=== PATIENT | female | born 1955 | race African-American/Black ===

== ENCOUNTER → 2016-12-05 | Outpatient (CLI) | payer BC ==
--- NOTE | 2016-12-05 09:45 | EKG ---
[facility] [address] [place] [address] Test Date: 2016-12-05 Test Time: 09:43:08 Pat Name: LARS MCKEON Department: Room: Gender: F [employer]: EVON : 1955 Requested By: JANIS TONY Order Number: [id number] Reading MD: Keenan Sterling Measurements Intervals [place] Rate: 104 P: 0 MI: 134 QRS: 75 QRSD: 76 T: 29 QT: 330 QTc: 440 Interpretive Statements SINUS TACHYCARDIA VENTRICULAR PREMATURE COMPLEX(ES) Electronically Signed On 12-05-2016 16:54:32 CDT by Keenan Sterling
== END | disposition home or self-care (01) ==
LOC: EKG 09:25
PROVIDERS: ATTEND Anesthesiology
DX: R00.0 Tachycardia, unspecified (principal); E11.9 Type 2 diabetes mellitus without complications
CPT/HCPCS: 93005

== ENCOUNTER 2019-06-03 08:34 | Outpatient (CLI) | payer BC ==
[2019-06-03] VITALS (9 sets, daily range): BP systolic 114–149; BP diastolic 59–94
[~2019-06-03] VITALS: Ht 149.9 cm; Wt 93.0 kg
[2019-06-03] MEDS ORDERED: OMEP40CA45 PO (09:00)
[2019-06-03] MEDS ORDERED: CHOL500050 PO (09:00)
[2019-06-03] MEDS ORDERED: GLIM2TAB3 PO (09:00)
[2019-06-03] MEDS ORDERED: METF500T16 PO (09:00)
[2019-06-03] MEDS ORDERED: GABA300C18 PO (09:00)
[2019-06-03] MEDS ORDERED: LOSA-73 PO (09:00)
[2019-06-03] MEDS ORDERED: HYDR12.575 PO (09:00)
[2019-06-03] MEDS ORDERED: iron PO (09:00)
[2019-06-03] MEDS ORDERED: LIDOCAINE WITH 8.4% SOD BICARB 3 ML DISP.SYRIN. ONE (09:15)
[2019-06-03 09:24] LABS: BASO % 1 % (0-3); EOS # 0.1 x10^3/uL (0.0-0.7); EOS % 2 % (0-3); HEMATOCRIT 30.5 % (36.0-47.0); HEMOGLOBIN 9.9 g/dL (12.0-15.5); LYMPH # 0.4 x10^3/uL (1.0-4.8); LYMPH % 18 % (24-48); MEAN CORPUSCULAR HEMOGLOBIN 27 pg (25-35); MEAN CORPUSCULAR HGB CONC 32 g/dL (31-37); MEAN CORPUSCULAR VOLUME 84 fL (79-100); MONO # 0.3 x10^3/uL (0.0-1.1); MONO % 12 % (0-9); NEUT # 1.6 x10^3/uL (1.8-7.7); NEUT % 67 % (31-73); PLATELET COUNT 83 x10^3/uL (140-400); RED BLOOD COUNT 3.65 x10^6/uL (3.50-5.40); RED CELL DISTRIBUTION WIDTH 20.4 % (11.5-14.5); WHITE BLOOD COUNT 2.4 x10^3/uL (4.0-11.0)
[2019-06-03 09:34] LABS: PROTHROMBIN TIME PATIENT 14.9 SEC (11.7-14.0)
[2019-06-03] MEDS ORDERED: MIDAZOLAM HCL/PF 2 MG/2 ML VIAL. ONE (09:59)
[2019-06-03] MEDS ORDERED: fentaNYL PF VIAL 100 MCG/2 ML VIAL ONE (10:00)
--- NOTE | 2019-06-03 10:10 | PDOC ---
MODERATE SEDATION ASSESSMENT RISKS/ALTERNATIVES Risks/Alternatives Risks and alternatives of this type of sedation and procedure discussed with: RISK/ALTERNATIVES: Patient H & P ON CHART H & P H & P on chart and reviewed for co-morbid conditions and appropriate labs. H&P ON CHART: Yes STATUS PREG STATUS ASSESSED: Yes MEDS/ALLERGIES REVIEWED Meds/Allergies Reviewed Medications and Allergies including time and route of recently administered narcotics and sedatives. MEDS/ALLERGIES REVIEWED: Yes ASA RATING ASA RATING: II AIRWAY ASSESSMENT Airway Assessment Airway patency, oral function limitations, presence of caps, crowns, dentures, partials, and ability to extend neck assessed. AIRWAY ASSESSMENT: Yes MALLAMPATI SCORE MALLAMPATI SCORE: II PRE-SEDATION ASSESSMENT PRE-SEDATION ASSESSMENT: Yes TATI CORNEJO MD Jun 03, 2019 10:10
--- NOTE | 2019-06-03 10:10 | PDOC2 ---
INTERV RADIOLOGY CONSULT Date of Consult 06.03.19 Reason for Consult abnormal wbc count. anemia. Referring Physician Michele Identification/Chief Complaint anemia, abn wbc count Source Patient History of Present Illness Reason for Visit as above Past Medical History Cardiovascular: No pertinent hx Pulmonary: No pertinent hx GI: No pertinent hx Heme/Onc: Anemia NOS, Other Hepatobiliary: No pertinent hx Psych: No pertinent hx Rheumatologic: No pertinent hx Infectious disease: No pertinent hx ENT: No pertinent hx Renal/: No pertinent hx Endocrine: No pertinent hx Dermatology: No pertinent hx Current Medications Current Medications Lidocaine HCl (Buffered Lidocaine 1%) 3 ml STK-MED ONCE .ROUTE ; Start 06/03/19 at 09:15; Stop 06/03/19 at 09:15; Status DC Midazolam HCl (Versed) 2 mg STK-MED ONCE .ROUTE ; Start 06/03/19 at 09:59; Stop 06/03/19 at 10:00; Status DC Fentanyl Citrate (Fentanyl 2ml Vial) 100 mcg STK-MED ONCE .ROUTE ; Start 06/03/19 at 10:00; Stop 06/03/19 at 10:00; Status DC Active Scripts Active Reported Glimepiride 2 Mg Tablet 1 Tab PO DAILY Gabapentin (Gabapentin) 300 Mg Capsule 300 Mg PO TID Vitamin D3 (Cholecalciferol (Vitamin D3)) 50,000 Unit Capsule 1 Cap PO WEEKLY 28 Days [iron ] 65 Mg PO DAILY Omeprazole 40 Mg Capsule.dr 1 Cap PO DAILY Metformin Hcl 500 Mg Tablet 500 Mg PO BIDWMEALS Hydrochlorothiazide Capsule (Hydrochlorothiazide) 12.5 Mg Capsule 12.5 Mg PO DAILY Losartan Potassium 50 Mg Tablet 50 Mg PO DAILY Allergies Coded Allergies: No Known Drug Allergies (Unverified , 06/03/19) Physical Exam Cardiovascular rrr Chest cta Vitals Vital Signs Date Time Temp Pulse Resp B/P (MAP) Pulse Ox O2 Delivery O2 Flow Rate FiO2 06/03/19 09:23 Room Air 06/03/19 09:16 98.3 79 18 143/66 (91) 98 98.3 Labs Laboratory Tests Test 06/03/19 09:20 White Blood Count 2.4 x10^3/uL (4.0-11.0) Red Blood Count 3.65 x10^6/uL (3.50-5.40) Hemoglobin 9.9 g/dL (12.0-15.5) Hematocrit 30.5 % (36.0-47.0) Mean Corpuscular Volume 84 fL (79-100) Mean Corpuscular Hemoglobin 27 pg (25-35) Mean Corpuscular Hemoglobin Concent 32 g/dL (31-37) Red Cell Distribution Width 20.4 % (11.5-14.5) Platelet Count 83 x10^3/uL (140-400) Neutrophils (%) (Auto) 67 % (31-73) Lymphocytes (%) (Auto) 18 % (24-48) Monocytes (%) (Auto) 12 % (0-9) Eosinophils (%) (Auto) 2 % (0-3) Basophils (%) (Auto) 1 % (0-3) Neutrophils # (Auto) 1.6 x10^3/uL (1.8-7.7) Lymphocytes # (Auto) 0.4 x10^3/uL (1.0-4.8) Monocytes # (Auto) 0.3 x10^3/uL (0.0-1.1) Eosinophils # (Auto) 0.1 x10^3/uL (0.0-0.7) Basophils # (Auto) 0.0 x10^3/uL (0.0-0.2) Prothrombin Time 14.9 SEC (11.7-14.0) Prothromb Time International Ratio 1.2 (0.8-1.1) Activated Partial Thromboplast Time 33 SEC (24-38) Laboratory Tests Test 06/03/19 09:20 White Blood Count 2.4 x10^3/uL (4.0-11.0) Red Blood Count 3.65 x10^6/uL (3.50-5.40) Hemoglobin 9.9 g/dL (12.0-15.5) Hematocrit 30.5 % (36.0-47.0) Mean Corpuscular Volume 84 fL (79-100) Mean Corpuscular Hemoglobin 27 pg (25-35) Mean Corpuscular Hemoglobin Concent 32 g/dL (31-37) Red Cell Distribution Width 20.4 % (11.5-14.5) Platelet Count 83 x10^3/uL (140-400) Neutrophils (%) (Auto) 67 % (31-73) Lymphocytes (%) (Auto) 18 % (24-48) Monocytes (%) (Auto) 12 % (0-9) Eosinophils (%) (Auto) 2 % (0-3) Basophils (%) (Auto) 1 % (0-3) Neutrophils # (Auto) 1.6 x10^3/uL (1.8-7.7) Lymphocytes # (Auto) 0.4 x10^3/uL (1.0-4.8) Monocytes # (Auto) 0.3 x10^3/uL (0.0-1.1) Eosinophils # (Auto) 0.1 x10^3/uL (0.0-0.7) Basophils # (Auto) 0.0 x10^3/uL (0.0-0.2) Prothrombin Time 14.9 SEC (11.7-14.0) Prothromb Time International Ratio 1.2 (0.8-1.1) Activated Partial Thromboplast Time 33 SEC (24-38) Assessment/Plan abnormal wbc count and anemia. : bone marrow bx TATI CORNEJO MD Jun 03, 2019 10:10
[2019-06-03] MEDS ORDERED: LIDOCAINE WITH 8.4% SOD BICARB 3 ML DISP.SYRIN. IJ ONE (10:15)
[2019-06-03] MEDS ORDERED: MIDAZOLAM HCL/PF 2 MG/2 ML VIAL. IV ONE (10:15)
[2019-06-03] MEDS ORDERED: fentaNYL PF VIAL 100 MCG/2 ML VIAL IV ONE (10:15)
--- NOTE | 2019-06-03 11:50 | NUR ---
Discharge Note: LARS MCKEON Discharge instructions and discharge home medications reviewed with Patient and a copy given. All questions have been answered and understanding verbalized. The following instructions and handouts were given: adult moderate sedation and post care for bone marrow biopsy Discontinued lines and drains: Peripheral IV intact. Patient discharged to Home or Self Care withSpousevia Wheelchair
--- NOTE | 2019-06-04 08:26 | RAD ---
CT-guided bone marrow biopsy. 06/04/2019 6:22 AM Indication: Leukopenia Discussion: The risks and benefits of the procedure, including but not limited to, bleeding and infection were discussed patient. Informed consent was obtained. The patient was brought to the CT scanner and placed in the prone position. A timeout procedure was performed. Marine Extension Agent CT imaging of the pelvis demonstrated left ilium amenable to bone marrow biopsy. The overlying soft tissues were prepped and draped using maximum sterile barrier technique. 1% lidocaine without epinephrine was administered for local anesthesia. Under intermittent CT guidance, an OncControl needle was advanced into the bone marrow of the left iliac crest. 2 Aspirates and 1 core biopsy samples were obtained. Samples were delivered to pathology was present at the time of procedure. The needle was removed and manual pressure held to achieve hemostasis. No immediate complications were identified. The procedure was performed under conscious sedation including continuous cardiopulmonary monitoring via dedicated sedation nurse. Sedation time: 15 minutes Impression: Successful CT-guided bone marrow biopsy of the left iliac crest . PQRS Compliance Statement: One or more of the following individualized dose reduction techniques were utilized for this examination: 1. Automated exposure control 2. Adjustment of the mA and/or kV according to patient size 3. Use of iterative reconstruction technique
--- NOTE | 2019-06-10 16:06 | PATHOLOGY ---
[facility] Accession Number: [id number] . 01 Material submitted: . PART A: bone - BONE MARROW BIOPSY PART B: bone - BONE MARROW CLOT PART C: bone - BONE MARROW ASPRIATE SLIDES PART D: bone - PERIPHERAL BLOOD SMEARS PART E: bone - BONE MARROW FLOW . 01 Clinical history: . Leukopenia 63-year-old woman with pancytopenia. . 02 Diagnosis: Bone marrow aspirate, biopsy, cell clot and peripheral blood: - Peripheral blood with pancytopenia including mild to moderate normocytic anemia, mild leukopenia/lymphopenia and moderate thrombocytopenia. - Mildly hypercellular bone marrow with trilineage hematopoiesis, mild erythroid hyperplasia, mild dyspoiesis and no evidence of lymphoma, acute leukemia or plasma cell dyscrasia. - Mild polyclonal plasmacytosis. - Only trace stainable iron. - See comment. (CLW:brent; 06/09/2019) [facility] [place] 06/10/2019 1516 Local . 02 Comment: Overall the bone marrow is mildly hypercellular for the patient's age with trilineage hematopoiesis, mild erythroid hyperplasia, mild dyspoiesis and no evidence of lymphoma, acute leukemia or plasma cell dyscrasia. There is a mild polyclonal plasmacytosis. The clinical significance of this is unclear and may represent a chronic inflammatory state. The dyspoiesis is mild and does not meet the morphologic criteria for myelodysplasia. Of note, only trace stainable iron is identified. Correlation with clinical history, additional laboratory data and cytogenetics is recommended. (CLW:brent; 06/09/2019) . 02 Electronically signed: . Mindy Viveros MD, Pathologist NPI- [id number] . 01 Gross description: . A. Received in formalin labeled "Janis Torres, BM BX," is a single needle core of franklin bone measuring 1.3 cm in length and 0.3 cm in diameter. The specimen is submitted entirely in cassette A1, following decalcification. . B. Received in formalin labeled "Janis Torres BM Asp clot," is an aggregate of dark franklin blood clot measuring 2.7 x 0.7 x 0.1 cm. The specimen is filtered and entirely submitted in cassette B1. (TSD; 06/03/2019) TOB/TOB 06/03/2019 1718 Local . 02 Microscopic: . CBC Data (06/03/19): WBC 2,400 /uL, RBC 3.65, hemoglobin 9.9 g/dL, hematocrit 30.5%, MCV 84 fL, MCH 27 pg, MCHC 32 g/dL, RDW 20.4%, and platelet count 83,000 /uL. Manual white blood cell differential: segs 67%, lymphs 18%, monos 12%, eos 2%, and basos 1%. . Peripheral Blood Smear: Cytomorphological examination of the Rosen's stained peripheral blood smear confirms the provided data. Red blood cells show mild to moderate normocytic anemia with mild anisocytosis. No significant poikilocytosis is identified. White blood cells are mildly decreased in number. They are predominantly segmented neutrophils and are without significant dyspoiesis or significant left shift. Lymphocytes are predominantly small, round, and mature appearing with condensed chromatin and scant cytoplasm with admixed large granular lymphocytes. Monocytes are mature. Platelets are moderately decreased in number and mainly normal in morphology with rare larger platelets noted. . Aspirate Smears: Cytomorphological examination of the Rosen's stained aspirate smears shows spicules present. The overall cellularity is approximately 50-60%. The myeloid to erythroid ratio is 1.5:1. Full myeloid maturation is identified and is without significant dyspoiesis. Erythroid maturation is mildly dyserythropoietic with irregular nuclear contours, nuclear cytoplasmic dyssynchrony and a mild left shift in maturation. In a 500 cell differential, there are 2% blasts (no Jenni rods are seen), 50% more differentiated myeloids, 36% erythroid precursors, 10% lymphocytes and 2% plasma cells. Megakaryocytes are proportional in number and both normal and abnormal in morphology with variable sizes and nuclear abnormalities. No lymphoid aggregates or markedly atypical lymphoid cells are seen. Plasma cells are without atypia. Iron stain of the aspirate smear shows trace stainable iron with spicules present. No ringed sideroblasts are identified. . Core Biopsy and Cell Clot: The decalcified bone marrow core biopsy is adequate. The bone marrow is mildly hypercellular with an overall cellularity of approximately 50%. The myeloid to erythroid ratio is 1-2:1. Myeloid maturation is without significant dyspoiesis. Erythroid maturation is mildly dyserythropoietic. Megakaryocytes are normal in number and both normal and abnormal in morphology. No lymphoid aggregates or markedly atypical lymphoid cells are seen. Bony trabeculae are unremarkable. Blood vessels are focally thickened. The cell clot has spicules present that are similar in cellularity and differential morphology as previously described. . Properly controlled special stains are performed. . Block A1: Iron - 0/4 + iron positivity; Reticulin - no significant reticulin fibrosis; [place] red - negative for congophilia. . Block B1: Iron - trace stainable iron with spicules present; [place] red - negative for congophilia. . To further quantify and characterize the plasma cell population and to identify cells in a tissue architectural context, properly controlled immunohistochemical stains are performed. . Block A1: CD138 - stains 5-10% scattered plasma cells; [place] and lambda in situ hybridization - plasma cells are polytypic. . Block B1: CD138 - stains 5-10% scattered plasma cells; [place] and lambda in situ hybridization - plasma cells are polytypic. . . Flow Cytometry: Flow cytometric immunophenotypic analysis was performed at [facility]. The diagnosis is "no diagnostic immunophenotypic abnormalities detected." There are 2.5% lymphocytes. Of the lymphocytes, there are 79% T-cells with a CD4/CD8 ratio of 1.5 and no aberrant T-cell antigen expression and 11% polyclonal B-cells (kappa lambda ratio of 1.8). There are 1.2% CD34 positive cells (blasts) and 0.4% precursor B-cells. There are 0.4% plasma cells. Please see separate flow cytometry report from [facility] ([id number]). . Cytogenetics Analysis: Cytogenetic chromosomal analysis is pending at [facility] ([id number]). . . (CLW:brent; 06/09/2019) . 02 Pathologist provided ICD-10: D61.818, D64.9, D72.819, D69.6, D75.89, D72.822 . 02 CPT . 133349, 563601, 355974, 137874, 917859, 894097, 189317, 068346, 347941, 282194, 911841, P88801, Z06607, [id number] Specimen Comment: A courtesy copy of this report has been sent to [phone], [phone] Specimen Comment: [phone], Specimen Comment: Report sent to , and Performed at: 01 [facility] [address], [place] [id number] MD Kenroy Falk MD Phone: [phone] Performed at: 02 [facility] [id number] [place] [id number] MD Ute Hammer MD Phone: [phone]
== END 2019-06-03 11:45 | disposition home or self-care (01) ==
LOC: INTRAD 08:34
PROVIDERS: ATTEND Internal Medicine Hematology & Oncology
DX: C95.00 Acute leukemia of unspecified cell type not having achieved remission (principal); Z79.84 Long term (current) use of oral hypoglycemic drugs; Z79.899 Other long term (current) drug therapy; Z79.01 Long term (current) use of anticoagulants
CPT/HCPCS: 36415; 38222; 77012; 85025; 85610; 85730; 88184; 88185; 88237; 88305; 88311; 88313; 88342; 88364; 88365; 99152; J2250; J3010